=== PATIENT | male | born 1995 | race Caucasian/White ===

== ENCOUNTER 2020-07-28 15:20 | Emergency (ER) | payer BC, MEDICAID ==
[~2020-07-28] VITALS: Ht 172.7 cm; Wt 48.0 kg
[2020-07-28 15:37] VITALS: BP 123/48
[2020-07-28] MEDS ORDERED: CEPH-585 PO (17:33)
[2020-07-28] MEDS ORDERED: SULF1TAB49 PO (17:33)
== END 2020-07-28 17:53 | disposition home or self-care (01) ==
LOC: ER 15:20
DX: L03.115 Cellulitis of right lower limb (principal); R11.0 Nausea; F17.200 Nicotine dependence, unspecified, uncomplicated; Z72.89 Other problems related to lifestyle; Z79.2 Long term (current) use of antibiotics; Z79.899 Other long term (current) drug therapy
CPT/HCPCS: 73610; 99283